=== PATIENT | male | born 1980 | race Caucasian/White ===

== ENCOUNTER 2024-12-29 17:48 | Emergency (ER) | payer OTHER, SELFPAY ==
[2024-12-29 17:51] VITALS: BP 170/93
--- NOTE | 2024-12-29 19:00 | ED.GENMED ---
History of Present Illness
General
Chief Complaint: Fall
Source: patient
Exam Limitations: none
Time Seen by Provider: 12/29/24 18:06
History of Present Illness
History of Present Illness:
44yoM with a history of hypertension and gout presenting with his for evaluation after a fall. Patient was doing some work in his backyard when he fell about 8 feet off of a roof. He landed on a an air conditioning unit and then fell to the
ground. He hit his head and sustained a scalp laceration. No loss of consciousness. Patient has no complaints of on arrival. Specifically, he denies a headache, neck pain, vomiting, dizziness, back pain. He does not take any blood thinners.
Unknown last Tdap.
Phy Exam
General Physical Exam
General Presentation: well appearing and no apparent distress
General Skin: warm and dry
General Habitus: normal
General Mental: alert
ENT Exam
ENT Exam: other (Approx 6cm gaping laceration to the L parietal scalp)
Additional ENT: No cervical spine tenderness
Eye Exam
Eye Exam: PERRL and conjunctiva normal
Pulmonary Exam
Pulmonary Exam: lungs clear, no respiratory distress, no rales, chest non tender, no crackles, no rhonchi and no wheezing
Gastrointestinal Exam
Gastrointestinal Exam: non tender, soft and non distended
Neurological Exam
Neurological Exam: alert
[place] Coma Scale
Eye Opening: Spontaneous
Verbal Response: Oriented
Motor Response: Obeys Commands
GCS Total Score: 15
Musculoskeletal Exam
Musculoskeletal Exam: other (No C/T/L spine tenderness)
Skin Exam
Skin Exam: normal color, warm/dry and other (Multiple abrasions of extremities)
Psychiatric Exam
Psychiatric Exam: normal mood/affect
Course
Orders/Labs/Results
Orders:
Orders
12/29/24 18:59
CT Head W/o Iv Contrast Urgent
Comment:
Reason For Exam: head injury
Tetanus/Diphth/Acelpertussis [Adacel] 0.5 ml IM .ONCE ONE
Vital Signs
Initial and Last Documented VS:
Initial Vital Signs
Temp Pulse Resp BP Pulse Ox
98.4 F 108 20 170/93 96
12/29/24 17:51 12/29/24 17:51 12/29/24 17:51 12/29/24 17:51 12/29/24 17:51
Last Documented Vital Signs
Temp Pulse Resp BP Pulse Ox
98.4 F 65 16 156/89 99
12/29/24 17:51 12/29/24 20:40 12/29/24 20:40 12/29/24 20:40 12/29/24 20:40
Procedures
Laceration Closure
Left Scalp:
Status of Wound: clean
Size of Wound in cm: 6
Description of Wound Edges: sharp
Preparation: cleaned with saline
Anesthesia: 1% Lidocaine with epi
Wound exploration: explored to base- no FB
Type of Closure: single layer closure
Skin Closure Material: skin giana
Number of sutures: 8
MDM/Problems Addressed
Differential Diagnosis Includes:
44yoM here for a head injury. Fell 8 feet off a roof and struck head. Arrives with a scalp laceration. No LOC. Denies other complaints. He is awake, alert, with a GCS of 15. 6cm gaping scalp laceration on exam. Cervical spine cleared via NEXUS
criteria. Differential diagnosis includes but is not limited to: laceration, closed head injury, intracranial hemorrhage, fracture
Initial ED plan: Check CT head. Repair scalp laceration and update Tdap.
*Critical Care Note
Total Time (30-74mins, 75-104mins- exclusive of procedures): Not Applicable
Update Note
Update Note:
CT head negative for acute findings. Scalp laceration repaired as above. Home wound care discussed. Advised follow-up with PCP and patient instructed to have giana removed in 1 week. ED return precautions reviewed. Patient discharged in
stable condition.
ED Attending Note
-
Portions of this chart may have been created with voice recognition software.� Occasional wrong word or��sound alike� substitutions may have occurred due to the inherent limitations of voice recognition software.
Discharge Plan
Departure
Patient Disposition: Home (Routine Discharge)
Date of Disposition: 12/29/24
Time of Disposition: 20:17
Patient with high blood pressure during this ER visit?: Yes
Discharge Problem:
Laceration of scalp, Head injury
Instructions: Head Injury in Adults (DC), Laceration Repair With Giana (DC)
Referrals:
Jose Garibay PA-C [Family Provider]
Activity Restrictions/Additional Instructions:
Giana need to be removed in 7 days.
Please follow-up with your family doctor. Return to the ER with any worsening symptoms including confusion, excessive vomiting, or signs of infection.
Interventions
Interventions:
*Risk Screen - Suicide Last Done: 12/29/24 17:51
*General Assessment Last Done: 12/29/24 17:51
*ED- Fall Risk Assessment Last Done: 12/29/24 20:02
*Nursing Disposition Last Done: 12/29/24 20:40
ED-Musculoskeletal Assessment Last Done: 12/29/24 20:02
ED- Neurological Assessment Last Done: 12/29/24 20:02
ED-Skin Assessment Last Done: 12/29/24 20:02
Discharge Date and Time
Discharge Date/Time: 12/29/24 20:41
Print Language: MAURITIAN
[2024-12-29] MEDS: ADACEL 0.5 ML IM (19:52)
[2024-12-29 20:40] VITALS: BP 156/89
== END 2024-12-29 20:41 | disposition home or self-care (01) ==
LOC: EMR 17:48
PROVIDERS: EMERGENCY PHYSICIAN Emergency Medicine; FAMILY PHYSICIAN Physician Assistant Medical
DX: S01.01XA Laceration without foreign body of scalp, initial encounter (principal); S09.90XA Unspecified injury of head, initial encounter; W19.XXXA Unspecified fall, initial encounter; Z23 Encounter for immunization; I10 Essential (primary) hypertension
CPT/HCPCS: 99284; 12002; 90471; 70450; 90715